=== PATIENT | male | born 1990 | race African-American/Black ===

== ENCOUNTER → 2017-12-17 | Day surgery (SDC) | payer MEDICAID ==
[~2017-12-17] MED LIST: NORCO 5-325 TA1 EACH PO
--- NOTE | 2017-12-31 10:22 | OP ---
[address] [address] OPERATIVE REPORT Name: CHANEL MARIE Room: [facility]#: [id number] Admission: 12/17/17 Attend Phys: Derek Norwood II Discharge: Date of : 89 Report #: [id number] THIS REPORT FOR: //name// CC: THERESA physician/PCP Derek Norwood DATE OF SERVICE: 12/17/2017 PREOPERATIVE DIAGNOSIS: Left fifth metacarpal fracture with comminution and displacement. POSTOPERATIVE DIAGNOSIS: Left fifth metacarpal fracture with comminution and displacement. PROCEDURE: Open reduction and internal fixation of left fifth metacarpal fracture. SURGEON: Derek Norwood II, DO. TWO NEEDLE MACHINE OPERATOR: OPAL Quiles. ANESTHESIA: Per operative record. ESTIMATED BLOOD LOSS: Minimal. ANTIBIOTICS: Per operative record. DRAINS: None. COMPLICATIONS: None. CONDITION OF THE PATIENT: Stable to recovery room. IMPLANTS USED: 0.062 K-wire and 1 Jurgan ball. DESCRIPTION OF PROCEDURE: The patient was taken to the operating suite and placed supine on the operating table and given appropriate anesthesia. The patient's left knee was sterilely prepped and draped. Surgery began by evaluation with C-arm showing a comminuted and displaced fracture of the proximal base of the left fifth metacarpal. Attempted closed reduction was performed; however, this was unable to be performed due to significant displacement and a near bayonet apposition of the fracture. An incision was then made over the dorsal aspect of the fifth metacarpal base, the skin and subcutaneous tissue bluntly. The fracture was then found and utilizing a [place], was reduced over the proximal portion of the fracture segment to allow for improved near anatomic alignment. This was visualized using C-arm in AP [address] [address] OPERATIVE REPORT Name: CHANEL MARIE Room: [facility].#: [id number] Admission: 12/17/17 Attend Phys: Derek Norwood II Discharge: Date of : 89 Report #: [id number] directions to be in excellent position. It was then secured with a 0.062 K-wire from the fifth metacarpal and to the fourth metacarpal. Once again, range of motion was performed showing excellent stability of the fracture. The wound was then copiously irrigated and closed with nylon stitch. Jurgan ball was applied over the wire after it was clipped. It was then placed in the ulnar gutter splint and transferred to recovery in stable condition. Counts were correct throughout the procedure. <ELECTRONICALLY SIGNED> By: Derek Norwood II, DO 12/31/17 1022 [id number] [id number] Norwood II, DO /nt
== END | disposition home or self-care (01) ==
LOC: M.SUR 06:44
DX: S62.397A Other fracture of fifth metacarpal bone, left hand, initial encounter for closed fracture (principal); X58.XXXA Exposure to other specified factors, initial encounter; Y93.9 Activity, unspecified; Y92.89 Other specified places as the place of occurrence of the external cause; Y99.9 Unspecified external cause status